=== PATIENT | female | born 1965 | race Caucasian/White ===

== ENCOUNTER 2019-05-08 20:49 | Inpatient (IN) | payer OTHER ==
[~2019-05-08] VITALS: Ht 170.2 cm; Wt 90.0 kg
[2019-05-08] MEDS ORDERED: morphine 4 MG/ML inj SYRINge IV ONE (22:50)
[2019-05-08] MEDS ORDERED: ondansetron/PF 4mg/2ml inj IV ONE (22:50)
[2019-05-08] MEDS ORDERED: CefTRIAXone/D5W-Rocephin 1gm 50 ML IV ONE (22:50)
[2019-05-08] MEDS ORDERED: NO HOME MEDS (23:28)
[2019-05-08 23:34] LABS: BASOPHILS # (AUTO) 0.1 X10'3 (0-0.2); BASOPHILS % (AUTO) 1.2 % (0-1); EOSINOPHILS # (AUTO) 0.3 X10'3 (0-0.9); HEMOGLOBIN 15.2 g/dl (12.0-16.0); LYMPHOCYTES # (AUTO) 2.1 X10'3 (1.1-4.8); MEAN CORPUSCULAR HEMOGLOBIN 32.7 PG (27.0-31.0); MEAN CORPUSCULAR HGB CONC 34.6 g/dL (33.0-36.5); MEAN CORPUSCULAR VOLUME 94.6 FL (78-98); MEAN PLATELET VOLUME 8.8 FL (7.4-10.4); MONOCYTES # (AUTO) 0.7 X10'3 (0-0.9); MONOCYTES % (AUTO) 8.2 % (2-12); NEUTROPHILS # (AUTO) 5.6 X10'3 (1.8-7.7); NEUTROPHILS % (AUTO) 63.6 % (42-75); PLATELET COUNT 215 X10'3 (140-440); RED BLOOD COUNT 4.65 X10'6 (4.20-5.60); RED CELL DISTRIBUTION WIDTH 12.3 % (11.5-14.5); WHITE BLOOD COUNT 8.7 X10'3 (4.5-11.0)
[2019-05-08] MEDS ORDERED: potassium Cl 20 mEq SR tablet PO PRN ×2 (23:40)
[2019-05-08] MEDS ORDERED: magnesium 4gm in 100ml NS 100 ML IV PRN (23:40)
[2019-05-08] MEDS ORDERED: magnesium 2GM in 50ml NS 50 ML IV PRN (23:40)
[2019-05-08] MEDS ORDERED: magnesium Cl slow-release 64mg tablet PO PRN (23:40)
[2019-05-08] MEDS ORDERED: mag hydrox/Alum hydrox/simeth 30ml oral suspension PO PRN (23:40)
[2019-05-08] MEDS ORDERED: magnesium hydroxide 30ml (MOM) UD suspension PO PRN (23:40)
[2019-05-08] MEDS ORDERED: potassium CL 10mEq/100ml bag 100 ML IV PRN ×2 (23:40)
[2019-05-08] MEDS ORDERED: ondansetron/PF 4mg/2ml inj IV PRN (23:40)
[2019-05-08 23:49] LABS: ALANINE AMINOTRANSFERASE 47 U/L (12-78); ALBUMIN 3.4 G/DL (3.4-5.0); ALBUMIN/GLOBULIN RATIO 0.9 (1.1-1.5); ALKALINE PHOSPHATASE 96 IU/L (46-116); ANION GAP 7 (8-16); ASPARTATE AMINO TRANSFERASE 42 U/L (10-37); BILIRUBIN,TOTAL 0.3 MG/DL (0.1-1.0); BLOOD UREA NITROGEN 13 MG/DL (7-18); BUN/CREATININE RATIO 22.8 (6.6-38.0); CALCIUM 8.6 MG/DL (8.5-10.1); CHLORIDE 104 MMOL/L (99-107); CREATININE 0.57 MG/DL (0.40-0.90); GLUCOSE 88 MG/DL (70-104); POTASSIUM 3.2 MMOL/L (3.5-5.1); SODIUM 142 MMOL/L (135-145); TOTAL CARBON DIOXIDE 31.1 MMOL/L (24-32); TOTAL PROTEIN 7.2 G/DL (6.4-8.2); eGFR > 90 ML/MIN
[2019-05-09] VITALS (8 sets, daily range): BP systolic 105–140; BP diastolic 52–84
[2019-05-09] MEDS: normal saline 1000ml 1,000 ML IV SCH ×3 (00:24→20:14)
[2019-05-09] MEDS ORDERED: VANCOmycin 1250MG/NS 250ml Bag 250 ML IV SCH (00:35)
--- NOTE | 2019-05-09 01:14 | NUR ---
ASKED TO REVIEW BY NURSING SUP FOR ADMIT POTENTIAL
[2019-05-09] MEDS: HYDROcodone/acetaminophen 5mg/325mg tablet PO PRN ×3 (01:44→17:28)
[2019-05-09] MEDS ORDERED: ketorolac tromethamine 15mg/ml inj. IV ONE (02:15)
[2019-05-09] MEDS ORDERED: HYDROcodone/acetaminophen 5mg/325mg tablet PO PRN (02:15)
[2019-05-09 06:05] LABS: BASOPHILS # (AUTO) 0.1 X10'3 (0-0.2); BASOPHILS % (AUTO) 0.9 % (0-1); EOSINOPHILS # (AUTO) 0.3 X10'3 (0-0.9); EOSINOPHILS % (AUTO) 3.5 % (0-6); HEMATOCRIT 42.1 % (35.0-45.0); HEMOGLOBIN 14.6 g/dl (12.0-16.0); LYMPHOCYTES # (AUTO) 2.1 X10'3 (1.1-4.8); LYMPHOCYTES % (AUTO) 26.5 % (21-51); MEAN CORPUSCULAR HEMOGLOBIN 32.6 PG (27.0-31.0); MEAN CORPUSCULAR HGB CONC 34.6 g/dL (33.0-36.5); MEAN CORPUSCULAR VOLUME 94.4 FL (78-98); MEAN PLATELET VOLUME 8.9 FL (7.4-10.4); MONOCYTES # (AUTO) 0.6 X10'3 (0-0.9); NEUTROPHILS # (AUTO) 4.9 X10'3 (1.8-7.7); NEUTROPHILS % (AUTO) 61.1 % (42-75); PLATELET COUNT 209 X10'3 (140-440); RED BLOOD COUNT 4.47 X10'6 (4.20-5.60); RED CELL DISTRIBUTION WIDTH 12.5 % (11.5-14.5)
[2019-05-09 06:17] LABS: ALANINE AMINOTRANSFERASE 40 U/L (12-78); ALBUMIN/GLOBULIN RATIO 0.8 (1.1-1.5); ALKALINE PHOSPHATASE 79 IU/L (46-116); ANION GAP 7 (8-16); ASPARTATE AMINO TRANSFERASE 34 U/L (10-37); BILIRUBIN,TOTAL 0.5 MG/DL (0.1-1.0); BLOOD UREA NITROGEN 11 MG/DL (7-18); BUN/CREATININE RATIO 17.5 (6.6-38.0); CHLORIDE 106 MMOL/L (99-107); CREATININE 0.63 MG/DL (0.40-0.90); GLUCOSE 83 MG/DL (70-104); MAGNESIUM 1.8 MG/DL (1.5-2.4); PHOSPHORUS 3.9 MG/DL (2.3-4.5); POTASSIUM 3.3 MMOL/L (3.5-5.1); SODIUM 142 MMOL/L (135-145); TOTAL PROTEIN 6.6 G/DL (6.4-8.2); eGFR > 90 ML/MIN
--- NOTE | 2019-05-09 06:20 | NUR ---
Problems reprioritized. Patient report given, questions answered & plan of care reviewed with VERONICA GRAHAM. Addendum: 05/09/19 at 0620 by Yasemin Avila RN Amended: Links added.
[2019-05-09] MEDS: K and/or MAG REPLACEMENT MC SCH ×2 (07:20→20:00)
--- NOTE | 2019-05-09 07:26 | NUR ---
Patient in room [facility]. I have received report from Yasemin MARTIN and had the opportunity to ask questions and assume patient care.
[2019-05-09] MEDS: docusate sod 100mg capsule PO SCH ×2 (08:18→20:11)
[2019-05-09] MEDS: VANCOmycin 1250MG/NS 250ml Bag 250 ML IV SCH ×2 (08:19→17:33)
[2019-05-09 09:44] LABS: PARTIAL THROMBOPLASTIN TIME 28 SECONDS (22-32)
[2019-05-09] MEDS ORDERED: pneumococcal 23-VAL P-sac vacc 25 mcg/0.5ml vial IMVAC ONE (10:00)
[2019-05-09] MEDS ORDERED: FLU VACC QS2019-20 36MOS UP/PF 60 MCG/0.5 ML SYRINGE IMVAC ONE (10:00)
--- NOTE | 2019-05-09 15:44 | NUR ---
Report called to recovery, notified of K 3.3.
[2019-05-09] MEDS ORDERED: ringers solution, lacted 1,000 ML IV SCH (15:53)
[2019-05-09] MEDS ORDERED: morphine 4 MG/ML inj SYRINge IV PRN (15:55)
[2019-05-09] MEDS ORDERED: meperidine/PF 25mg/ml syringe IV PRN ×3 (15:55)
[2019-05-09] MEDS ORDERED: ketorolac trometh. 30mg/ml inj. IV ONE (15:55)
[2019-05-09] MEDS ORDERED: ondansetron/PF 4mg/2ml inj IV PRN (15:55)
[2019-05-09] MEDS ORDERED: proCHLORperazine 10 MG/2 ml inj IV PRN (15:55)
[2019-05-09] MEDS ORDERED: morphine 2 MG/ML inj. syringe IV PRN (15:55)
[2019-05-09] MEDS ORDERED: fentaNYL/PF 50MCG/1 ML 2ML syringe ONE (16:00)
[2019-05-09] MEDS ORDERED: LIDOcaine 1% w/epiNEPHrine 1:200,000 30ml vial ONE (16:15)
[2019-05-09] MEDS ORDERED: ceFAZolin 1000mg inj ONE (16:15)
[2019-05-09] MEDS ORDERED: midazolam 2 mg/2 ml injection ONE (16:15)
[2019-05-09] MEDS ORDERED: propofol inj 20 ML IV ONE ×4 (16:16)
--- NOTE | 2019-05-09 16:35 | NUR ---
Received from OR via , accompanied by Anesthesiologist DR GRIFFITH and report given by Anesthesiolgist. PATIENT A&OX4, DENIES PAIN, V/S WNL, NEUROVASCULAR CHECKS INTACT, 20G PIV RUE, SCD ON. DRESSING TO LEFT BREAST CDI.
--- NOTE | 2019-05-09 17:05 | NUR ---
PATIENT A&OX4, DENIES PAIN, V/S WNL, NEUROVASCULAR CHECKS INTACT, 20G PIV RUE, SCD ON. DRESSING TO LEFT BREAST CDI. PATIENT TAKEN TO 355 WITH ALL BELONGINGS AND HOOKED UP TO MONITORS IN ROOM AND REPORT GIVEN TO RN WHO HAS TAKEN OVER PATIENT CARE.
[2019-05-09] MEDS ORDERED: LORazepam 0.5 MG tablet PO PRN (17:15)
--- NOTE | 2019-05-09 18:13 | NUR ---
Problems reprioritized. Patient report given, questions answered & plan of care reviewed with Yasemin MARTIN.
[2019-05-09] MEDS: lactobacillus rhamnosus 10,000 MMU CELLS/CAPSULE PO SCH (20:11)
[2019-05-09] MEDS: ketorolac tromethamine 15mg/ml inj. IV PRN (20:12)
--- NOTE | 2019-05-09 21:16 | NUR ---
Patient in room [facility]. I have received report from VERONICA Pacheco and had the opportunity to ask questions and assume patient care. Addendum: 05/09/19 at 2116 by Yasemin Avila RN Amended: Links added.
[2019-05-09] MEDS: piperacillin/tazo 3.375gm/50ml 50 ML IV SCH (23:37)
[2019-05-10] MEDS ORDERED: VANCOMYCIN LEVEL IV ONE (00:30)
[2019-05-10] MEDS: HYDROcodone/acetaminophen 5mg/325mg tablet PO PRN ×2 (00:44→08:13)
[2019-05-10 00:49] VITALS: BP 132/85
[2019-05-10 01:24] LABS: BASOPHILS # (AUTO) 0.1 X10'3 (0-0.2); BASOPHILS % (AUTO) 1.1 % (0-1); EOSINOPHILS # (AUTO) 0.4 X10'3 (0-0.9); EOSINOPHILS % (AUTO) 6.4 % (0-6); HEMATOCRIT 40.9 % (35.0-45.0); HEMOGLOBIN 14.2 g/dl (12.0-16.0); LYMPHOCYTES # (AUTO) 1.6 X10'3 (1.1-4.8); LYMPHOCYTES % (AUTO) 26.1 % (21-51); MEAN CORPUSCULAR HEMOGLOBIN 33.3 PG (27.0-31.0); MEAN CORPUSCULAR HGB CONC 34.8 g/dL (33.0-36.5); MEAN CORPUSCULAR VOLUME 95.7 FL (78-98); MONOCYTES # (AUTO) 0.5 X10'3 (0-0.9); MONOCYTES % (AUTO) 8.3 % (2-12); NEUTROPHILS # (AUTO) 3.6 X10'3 (1.8-7.7); NEUTROPHILS % (AUTO) 58.1 % (42-75); PLATELET COUNT 192 X10'3 (140-440); RED BLOOD COUNT 4.27 X10'6 (4.20-5.60); RED CELL DISTRIBUTION WIDTH 12.7 % (11.5-14.5); WHITE BLOOD COUNT 6.3 X10'3 (4.5-11.0)
[2019-05-10 01:34] LABS: ALANINE AMINOTRANSFERASE 42 U/L (12-78); ALBUMIN 2.9 G/DL (3.4-5.0); ALBUMIN/GLOBULIN RATIO 0.8 (1.1-1.5); ALKALINE PHOSPHATASE 75 IU/L (46-116); ANION GAP 8 (8-16); ASPARTATE AMINO TRANSFERASE 37 U/L (10-37); BILIRUBIN,TOTAL 0.3 MG/DL (0.1-1.0); BLOOD UREA NITROGEN 16 MG/DL (7-18); BUN/CREATININE RATIO 25.4 (6.6-38.0); CALCIUM 8.6 MG/DL (8.5-10.1); CHLORIDE 107 MMOL/L (99-107); CREATININE 0.63 MG/DL (0.40-0.90); GLUCOSE 95 MG/DL (70-104); MAGNESIUM 1.8 MG/DL (1.5-2.4); PHOSPHORUS 4.5 MG/DL (2.3-4.5); POTASSIUM 3.6 MMOL/L (3.5-5.1); SODIUM 142 MMOL/L (135-145); TOTAL CARBON DIOXIDE 27.1 MMOL/L (24-32); TOTAL PROTEIN 6.4 G/DL (6.4-8.2); VANCOMYCIN,TROUGH 18.3 UG/ML (6.0-14.0); eGFR > 90 ML/MIN
[2019-05-10] MEDS: VANCOmycin 1250MG/NS 250ml Bag 250 ML IV SCH ×2 (01:38→08:04)
[2019-05-10] MEDS: normal saline 1000ml 1,000 ML IV SCH (06:12)
--- NOTE | 2019-05-10 06:16 | NUR ---
Problems reprioritized. Patient report given, questions answered & plan of care reviewed with VERONICA GRAHAM. Addendum: 05/10/19 at 0617 by Yasemin Avila RN Amended: Links added.
[2019-05-10] MEDS ORDERED: heparin, porcine 5000 units/ml vial SQ SCH (08:00)
[2019-05-10] MEDS: lactobacillus rhamnosus 10,000 MMU CELLS/CAPSULE PO SCH (08:06)
[2019-05-10] MEDS: docusate sod 100mg capsule PO SCH (08:06)
[2019-05-10] MEDS: K and/or MAG REPLACEMENT MC SCH (08:07)
[2019-05-10] MEDS: ketorolac tromethamine 15mg/ml inj. IV PRN (08:14)
[2019-05-10] MEDS: piperacillin/tazo 3.375gm/50ml 50 ML IV SCH (09:58)
[2019-05-10] MEDS ORDERED: LINE600T12 PO (13:27)
[2019-05-10] MEDS ORDERED: DOCU100C40 PO (13:27)
[2019-05-10] MEDS ORDERED: HYDR-4383 PO (13:27)
[2019-05-10] MEDS ORDERED: LACT1CAP26 PO (13:27)
--- NOTE | 2019-05-10 14:40 | NUR ---
Patient discharged. Provided Taxi to place of choice. Patient provided with 6 days of dressing changes. Patient took out her own IV, no complications. Patient upset that she is being discharged, yelling in the nurses station because she wanted to stay another night but was being discharged. Primary nurse on lunch break when patient came to desk yelling that she was being rushed out of the hospital, when in fact the patient was rushing, took out her own IV, got dressed on her own and packed her own bags, didn't want to wait for her paperwork. Discharge paper worked printed and break nurse went over discharge papers. Care package sent with dressings, hand purell gel, Flushes, silk tape, towels x2, body wash. Patients partner, Jose Manuel, stayed [facility] Jose Manuel stated patient "just upset", apologized to Jose Manuel about the confusion and explained that a taxi was being called. Charge nurse thought patient was partnership and could have a ride provided when in fact she isn't partnership, so this delayed taxi being called. Taxi to be in front of the hospital at 1530. All belongings and education provided. No medications in the pharmacy. Patients VS stable and no distress noted.
[2019-05-10] MEDS ORDERED: CEPH250T PO (14:54)
[2019-05-10] MEDS ORDERED: SULF1TAB49 PO (14:54)
== END 2019-05-10 14:40 | disposition home or self-care (01) | DRG 585 ==
LOC: ER 20:50 → ED HOLD 23:36 → UNDOADMIN 23:40 → ED HOLD 05-09 02:00 → SUR 3N 05-09 02:00
PROVIDERS: ADMIT Family Medicine; ATTEND Family Medicine
PROC: 0H9U0ZZ Drainage of Left Breast, Open Approach (ICD-10-PCS; principal; 2019-05-09 16:02)
PROC: 3E0234Z Introduction of Serum, Toxoid and Vaccine into Muscle, Percutaneous Approach (ICD-10-PCS; 2019-05-10)
PROC: 3E02340 Introduction of Influenza Vaccine into Muscle, Percutaneous Approach (ICD-10-PCS; 2019-05-10)
DX: N61.1 Abscess of the breast and nipple (principal); F17.200 Nicotine dependence, unspecified, uncomplicated; Z71.6 Tobacco abuse counseling; Z23 Encounter for immunization
CPT/HCPCS: 96374; 96375; 99285; Z7506; 36415; 71045; 73564; 80053; 80202; 83735; 84100; 85025; 85610; 85730; 87070; 87075; 87081; 87102; 90732; 93005; A4618; A6253; A6266; A6449; A7000; G0378; J0690; J0696; J1644; J1885; J2250; J2270; J2405; J2543; J2704; J3010; J3370; J3480; J7030; J7120; Q2037

== ENCOUNTER 2019-05-12 09:20 | Outpatient (CLI) | payer MEDICAID, OTHER ==
[~2019-05-12 09:20] MED LIST: CEPH250T PO; DOCU100C40 PO; HYDR-4383 PO; LACT1CAP26 PO; SULF1TAB49 PO
[2019-05-12] MEDS ORDERED: LIDOcaine 2% 5ml jelly ONE (09:27)
== END 2019-05-12 10:50 | disposition home or self-care (01) ==
LOC: WOUND CARE 09:20 → EDSTATUS 09:30 → WOUND CARE 10:50
PROVIDERS: ATTEND Surgery
DX: T81.89XA Other complications of procedures, not elsewhere classified, initial encounter (principal); L98.492 Non-pressure chronic ulcer of skin of other sites with fat layer exposed; N61.1 Abscess of the breast and nipple; I10 Essential (primary) hypertension; M19.90 Unspecified osteoarthritis, unspecified site; F17.200 Nicotine dependence, unspecified, uncomplicated; F15.90 Other stimulant use, unspecified, uncomplicated; Z71.6 Tobacco abuse counseling; Y92.89 Other specified places as the place of occurrence of the external cause; Y83.8 Other surgical procedures as the cause of abnormal reaction of the patient, or of later complication, without mention of misadventure at the time of the procedure
CPT/HCPCS: A6266; G0463; A4663

== ENCOUNTER 2019-05-17 08:00 | Outpatient (CLI) | payer MEDICAID ==
[2019-05-17] MEDS ORDERED: LIDOcaine 2% 5ml jelly ONE (09:26)
== END 2019-05-17 10:30 | disposition home or self-care (01) ==
LOC: WOUND CARE 08:00 → EDSTATUS 10:00 → WOUND CARE 10:30
PROVIDERS: ATTEND Nurse Practitioner Family
DX: T81.89XD Other complications of procedures, not elsewhere classified, subsequent encounter (principal); L98.492 Non-pressure chronic ulcer of skin of other sites with fat layer exposed; N61.1 Abscess of the breast and nipple; I10 Essential (primary) hypertension; M19.90 Unspecified osteoarthritis, unspecified site; F17.200 Nicotine dependence, unspecified, uncomplicated; F15.90 Other stimulant use, unspecified, uncomplicated; Z71.6 Tobacco abuse counseling; Y83.8 Other surgical procedures as the cause of abnormal reaction of the patient, or of later complication, without mention of misadventure at the time of the procedure
CPT/HCPCS: A6266; G0463; A4663; A6212